=== PATIENT | female | born 1950 | race Caucasian/White ===

== ENCOUNTER 2017-07-18 15:41 | Emergency (ER) | payer OTHER ==
[~2017-07-18] VITALS: Ht 165.1 cm; Wt 83.0 kg
--- NOTE | 2017-07-18 15:41 | NUR ---
NAUSEA, VOMITING x 1 DAY, VSS, RESP EVEN AND UNLABORED, PT WAS PUT ON MONITOR. AT BS.
--- NOTE | 2017-07-18 15:49 | NUR ---
CODE STROKE ACTIVATED
--- NOTE | 2017-07-18 15:50 | NUR ---
CALLED [facility], SPOKE WITH CARLOZ, PRESENTED PT, AWAITING CALL BACK FROM (NEUROLOIST).
--- NOTE | 2017-07-18 15:58 | NUR ---
PT BACK FROM CT
[2017-07-18] MEDS ORDERED: ONDANSETRON HCL/PF 4 MG/2 ML VIAL IV ONE (16:00)
[2017-07-18] MEDS ORDERED: IV NS 0.9% 1,000 ML BAG IV ONE (16:00)
[2017-07-18] MEDS ORDERED: ONDANSETRON HCL/PF 4 MG/2 ML VIAL ONE (16:07)
[2017-07-18 16:08] LABS: BASOPHILS % (AUTO) 0.3 % (0.0-2.0); EOSINOPHILS % (AUTO) 0.9 % (0.0-6.0); HEMATOCRIT 28 % (33-45); HEMOGLOBIN 8.5 g/dL (11.5-14.8); LYMPHOCYTES # (AUTO) 1.8 /CMM (0.8-4.8); LYMPHOCYTES % (AUTO) 15.6 % (20.0-44.0); MEAN CORPUSCULAR HGB CONC 31 g/dl (31.0-36.0); MEAN CORPUSCULAR VOLUME 74 fL (82-100); MONOCYTES # (AUTO) 0.9 /CMM (0.1-1.30); MONOCYTES % (AUTO) 7.5 % (2.0-12.0); NEUTROPHILS # (AUTO) 8.9 /CMM (1.8-8.9); NEUTROPHILS % (AUTO) 75.7 % (43.0-81.0); PLATELET COUNT (AUTO) 418 /CMM (150-450); RDW COEFFICIENT OF VARIATION 17.1 (11.5-15.0); RED BLOOD CELL COUNT(AUTO) 3.72 MIL/uL (4.0-5.2); WHITE BLOOD COUNT (AUTO) 11.7 K/uL (4.3-11.0)
[2017-07-18 16:19] LABS: CALCIUM, SERUM 8.1 mg/dL (8.5-10.1); CREATININE 1.4 mg/dL (0.6-1.3); POTASSIUM 3.8 mmol/L (3.5-5.1)
[2017-07-18 16:21] LABS: INR 0.97 (0.85-1.15)
[2017-07-18 16:27] LABS: TROPONIN I 0.069 ng/mL (0.00-0.056)
[2017-07-18] MEDS ORDERED: HYDR-4076 PO (16:42)
[2017-07-18] MEDS ORDERED: IPRA3AMP23 IH (16:42)
[2017-07-18] MEDS ORDERED: HYDR-552 PO (16:42)
[2017-07-18] MEDS ORDERED: DILT180C PO (16:42)
[2017-07-18] MEDS ORDERED: LOSA50TA3 PO (16:42)
[2017-07-18] MEDS ORDERED: ALBU18HF2 IH (16:42)
[2017-07-18] MEDS ORDERED: ATEN50TA PO (16:42)
--- NOTE | 2017-07-18 17:33 | NUR ---
CALLED [facility], PRESENTED PT, AWAITING CALL BACK FROM [facility]
--- NOTE | 2017-07-18 18:28 | NUR ---
PT ACCEPTED TO [facility] ER BY DR. CASTILLO. NUMBER TO GIVE REPORT IS [phone]. [facility] SHOULD ARRIVE BY [phone]
[2017-07-18 19:27] VITALS: BP 135/80
== END 2017-07-18 20:05 | disposition short-term general hospital (02) ==
LOC: ER 15:43
DX: R11.2 Nausea with vomiting, unspecified (principal); R51 Headache; R41.82 Altered mental status, unspecified; R53.1 Weakness; D64.9 Anemia, unspecified; N28.9 Disorder of kidney and ureter, unspecified; R60.9 Edema, unspecified; I48.91 Unspecified atrial fibrillation; R79.89 Other specified abnormal findings of blood chemistry; E78.5 Hyperlipidemia, unspecified; G93.89 Other specified disorders of brain; I11.0 Hypertensive heart disease with heart failure; I50.9 Heart failure, unspecified; Z88.0 Allergy status to penicillin; Z98.890 Other specified postprocedural states
CPT/HCPCS: 36415; 70450-TC; 71045-TC; 80048-TC; 80061-TC; 82962-TC; 83605-TC; 84484-TC; 85025-TC; 85730-TC; 87040-TC; A4606; J2405; J7030; Z7610